=== PATIENT | female | born 1980 | race Two or more races ===

== ENCOUNTER 2018-11-03 17:33 | Emergency (ER) | payer OTHER ==
--- NOTE | 2018-11-03 18:39 | EDPHY ---
H & P Smoking Status: Never smoked Time Seen by Provider: 11/03/18 18:38 HPI/ROS: CHIEF COMPLAINT: 3 days of lower abdominal pain HISTORY OF PRESENT ILLNESS: Patient is a 38-year-old female with no significant past medical history here chief complaint of persistent lower abdominal pain for 3 days. She was seen at [facility] yesterday and had urinalysis which showed no or UTI. Today she had persistent pain so was sent here for evaluation of possible appendicitis. She denies any fever or chills, vomiting, diarrhea, changes in appetite. She has no history of ovarian cyst. She has had her gallbladder removed and a periumbilical hernia repaired. She reports normal bowel movement today. REVIEW OF SYSTEMS: Constitutional: No fever, no chills. Eyes: No discharge. ENT: No sore throat. Cardiovascular: No chest pain, no palpitations. Respiratory: No cough, no shortness of breath. Gastrointestinal: + abdominal pain, no vomiting. Genitourinary: No hematuria. Musculoskeletal: No back pain. Skin: No rashes. Neurological: No headache. (Marcelo Chacko) Physical Exam: General Appearance: Alert and no distress. ENT: normal dentition. No tonsillar exudate or swelling. Eyes: Pupils equal and round no injection. Respiratory: Chest is nontender, lungs are clear to auscultation. Cardiac: regular rate and rhythm. No lower extremity edema Gastrointestinal: Abdomen is suprapubic tenderness and right lower quadrant tenderness without peritoneal signs, no masses, bowel sounds normal. Musculoskeletal: Neck is supple and nontender. Extremities have full range of motion and are nontender without deformity Skin: No rashes or lesions. Neuro: Cranial nerves grossly intact. No nystagmus. (Marcelo Chacko) Constitutional: Initial Vital Signs Temperature (C) 36.4 C 11/03/18 17:59 Heart Rate 70 11/03/18 17:59 Respiratory Rate 18 11/03/18 17:59 Blood Pressure 121/82 H 11/03/18 17:59 O2 Sat (%) 100 11/03/18 17:59 O2 Delivery Mode Room Air Allergies/Adverse Reactions: No Known Allergies Allergy (Unverified 11/03/18 18:04) Home Medications: Medication Instructions Recorded Hydrocodone/APAP 5/325 [Shelby 1 tab PO Q6H #12 tab 11/03/18 5/325 (*)] Medical Decision Making - Diagnostics Imaging Results: Imaging Impressions Abdomen CT 11/03/18 19:00 Impression: 1. Left adnexal free fluid, with 4.5- x 3.6- x 3.4-cm uterine hypodense possibly cystic mass versus fibroid. Recommend ultrasound pelvis. 2. No CT evidence of appendicitis, abscess, or bowel obstruction. 3. No nephrolithiasis or hydronephrosis. 4. 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 Findings and recommendations discussed with Emergency Department physician, Marcelo Chacko PA-C, at 2103 hours, on November 03, 2018. Final report concurs with initial preliminary interpretation. Pelvic/Renal Ultrasound 11/03/18 21:15 Impression: 1. Anterior fundal uterine leiomyoma, measuring 5.1 cm. 2. Left ovary not visualized. 3. No torsion to the right ovary. Findings and recommendations discussed with Emergency Department physician, Marcelo Chacko PA-C, at 2200 hours, on November 03, 2018. Final report concurs with initial preliminary interpretation. ED Course/Re-evaluation: 38-year-old female here with lower abdominal pain for the last 3 days. There was concern for appendicitis that she had suprapubic and right lower quadrant pain but CT scan revealed no evidence of acute appendicitis. Did reveal a pelvic mass and ultrasound was ordered. Ultrasound revealed large intrauterine mass consistent with uterine fibroid. There is also some free fluid in the pelvis consistent with possible ruptured ovarian cyst. She is not . Urinalysis shows no evidence of UTI. History and exam are not consistent with ovarian torsion. Patient was for her to OBGYN for further treatment and evaluation. (Marcelo Chacko) Other Provider: PHYSICIAN DOCUMENTATION: The patient was evaluated and managed by the Physician [employer]. My co- signature indicates that I have reviewed this chart and I agree with the findings and plan of care as documented. I am the secondary supervising physician. (Russ Stevenson) - Data Points Laboratory Results: Laboratory Results 11/03/18 18:49 11/03/18 18:49 11/03/18 11/03/18 11/03/18 22:20 18:49 18:49 WBC RBC Hgb Hct MCV MCH MCHC RDW Plt Count MPV Neut % (Auto) Lymph % (Auto) Mckenzie % (Auto) Eos % (Auto) Baso % (Auto) Nucleat RBC Rel Count Absolute Neuts (auto) Absolute Lymphs (auto) Absolute Monos (auto) Absolute Eos (auto) Absolute Basos (auto) Absolute Nucleated RBC Immature Gran % Immature Gran # Sodium 137 mEq/L mEq/L (135-145) Potassium 3.9 mEq/L mEq/L (3.5-5.2) Chloride 105 mEq/L mEq/L (97-110) Carbon Dioxide 23 mEq/l mEq/l (22-31) Anion Gap 9 mEq/L mEq/L (6-14) BUN 17 mg/dL mg/dL (7-23) Creatinine 0.7 mg/dL mg/dL (0.6-1.0) Estimated GFR > 60 Glucose 92 mg/dL mg/dL (70-100) Calcium 9.1 mg/dL mg/dL (8.5-10.4) Total Bilirubin 0.4 mg/dL mg/dL (0.1-1.4) AST 27 IU/L IU/L (14-46) ALT 29 IU/L IU/L (9-52) Alkaline Phosphatase 113 IU/L IU/L (38-126) Total Protein 7.9 g/dL g/dL (6.3-8.2) Albumin 4.3 g/dL g/dL (3.5-5.0) Lipase 90 IU/L IU/L (23-300) Beta HCG, Qual NEGATIVE Urine Color PALE YELLOW Urine Appearance CLEAR Urine pH 6.0 (5.0-7.5) Ur Specific [place] > 1.035 H (1.002-1.030) Urine Protein NEGATIVE (NEGATIVE) Urine Ketones NEGATIVE (NEGATIVE) Urine Blood 1+ H (NEGATIVE) Urine Nitrate NEGATIVE (NEGATIVE) Urine Bilirubin NEGATIVE (NEGATIVE) Urine Urobilinogen NEGATIVE EU EU (0.2-1.0) Ur Leukocyte Esterase NEGATIVE (NEGATIVE) Urine RBC 1-3 /hpf /hpf (0-3) Urine WBC 1-3 /hpf /hpf (0-3) Ur Epithelial Cells TRACE /lpf /lpf (NONE-1+) Urine Mucus TRACE /lpf /lpf (NONE-1+) Urine Glucose NEGATIVE (NEGATIVE) 11/03/18 18:49 WBC 15.64 10^3/uL H 10^3/uL (3.80-9.50) RBC 4.38 10^6/uL 10^6/uL (4.18-5.33) Hgb 11.8 g/dL L g/dL (12.6-16.3) Hct 35.8 % L % (38.0-47.0) MCV 81.7 fL fL (81.5-99.8) MCH 26.9 pg L pg (27.9-34.1) MCHC 33.0 g/dL g/dL (32.4-36.7) RDW 13.9 % % (11.5-15.2) Plt Count 314 10^3/uL 10^3/uL (150-400) MPV 9.4 fL fL (8.7-11.7) Neut % (Auto) 69.0 % % (39.3-74.2) Lymph % (Auto) 23.5 % % (15.0-45.0) Mckenzie % (Auto) 6.1 % % (4.5-13.0) Eos % (Auto) 0.7 % % (0.6-7.6) Baso % (Auto) 0.3 % % (0.3-1.7) Nucleat RBC Rel Count 0.0 % % (0.0-0.2) Absolute Neuts (auto) 10.79 10^3/uL H 10^3/uL (1.70-6.50) Absolute Lymphs (auto) 3.67 10^3/uL H 10^3/uL (1.00-3.00) Absolute Monos (auto) 0.96 10^3/uL H 10^3/uL (0.30-0.80) Absolute Eos (auto) 0.11 10^3/uL 10^3/uL (0.03-0.40) Absolute Basos (auto) 0.04 10^3/uL 10^3/uL (0.02-0.10) Absolute Nucleated RBC 0.00 10^3/uL 10^3/uL (0-0.01) Immature Gran % 0.4 % % (0.0-1.1) Immature Gran # 0.07 10^3/uL 10^3/uL (0.00-0.10) Sodium Potassium Chloride Carbon Dioxide Anion Gap BUN Creatinine Estimated GFR Glucose Calcium Total Bilirubin AST ALT Alkaline Phosphatase Total Protein Albumin Lipase Beta HCG, Qual Urine Color Urine Appearance Urine pH Ur Specific [place] Urine Protein Urine Ketones Urine Blood Urine Nitrate Urine Bilirubin Urine Urobilinogen Ur Leukocyte Esterase Urine RBC Urine WBC Ur Epithelial Cells Urine Mucus Urine Glucose Departure - Departure Disposition: Home, Routine, Self-Care Clinical Impression: Uterine fibroid Condition: Serious Instructions: Myomectomy (DC) Referrals: Mahogany Ivan [Primary Care Provider] - As per Instructions Aminata Barnett DO [Doctor of Osteopathy] - As per Instructions Prescriptions: Hydrocodone/APAP 5/325 [Shelby 5/325 (*)] 1 tab PO Q6H #12 tab Print Language: [place]an
[2018-11-03 19:05] LABS: PLATELET COUNT 314 10^3/uL (150-400)
[2018-11-03] MEDS ORDERED: IOPAMIDOL (ISOVUE-300) 100 ML BTL ONE (19:06)
[2018-11-03 22:56] VITALS: BP 116/74
[2018-11-03] MEDS ORDERED: HYDROCOD/APAP 5/325 PREPACK#6 BTL TAKEHOME ONE ×2 (23:18→23:20)
== END 2018-11-03 23:27 | disposition home or self-care (01) ==
DX: D25.9 Leiomyoma of uterus, unspecified (principal)
CPT/HCPCS: Q9967